=== PATIENT | female | born 1980 | race African-American/Black ===

== ENCOUNTER 2021-06-07 19:36 | Emergency (ER) | payer OTHER ==
[~2021-06-07] VITALS: Ht 170.2 cm; Wt 95.3 kg
[2021-06-07] MEDS ORDERED: TESTOSTERONE SUBQ (19:57)
[2021-06-07] MEDS ORDERED: PERCOCET PO (21:04)
[2021-06-07 21:21] VITALS: BP 139/79
== END 2021-06-07 21:21 | disposition home or self-care (01) ==
LOC: ER 19:36
DX: M25.462 Effusion, left knee (principal); Z79.899 Other long term (current) drug therapy; Z88.8 Allergy status to other drugs, medicaments and biological substances